=== PATIENT | female | born 1965 | race Caucasian/White ===

== ENCOUNTER → 2017-01-04 | Outpatient (CLI) | payer OTHER ==
[2017-01-04 12:06] LABS: Cholesterol 214 mg/dL (<200); Glucose 88 mg/dL (74-99); HDL Cholesterol 88 mg/dL (40-60); Triglycerides 141 mg/dL (<150)
== END | disposition home or self-care (01) ==
LOC: LABWHC1 11:18
PROVIDERS: ATTEND Family Medicine
DX: Z00.01 Encounter for general adult medical examination with abnormal findings (principal)
CPT/HCPCS: 36415; 80061; 82947

== ENCOUNTER → 2017-01-04 | Outpatient (CLI) | payer OTHER ==
--- NOTE | 2017-01-04 12:07 | XR ---
EXAMINATION TYPE: XR shoulder complete RT DATE OF EXAM: 01/04/2017 11:59 AM CLINICAL HISTORY: Right shoulder pain radiating down right arm. TECHNIQUE: Three views of the right shoulder are obtained. COMPARISON: None. FINDINGS: There is no acute fracture/dislocation evident in the right shoulder. There is mild to mod erate spurring and joint space loss acromioclavicular joint. Mild joint space loss and spurring in th e glenohumeral joint is present. The visualized ribs are intact and unremarkable. IMPRESSION: There are mild to moderate degenerative changes in right shoulder.
== END ==
LOC: RADXRMAIN 11:38
PROVIDERS: ATTEND Family Medicine
DX: M25.511 Pain in right shoulder (principal)
CPT/HCPCS: 36415; 80061; 82947